=== PATIENT | female | born 1955 | race Caucasian/White ===

== ENCOUNTER 2023-07-02 08:00 | Inpatient (IN) | payer OTHER, SELFPAY ==
[2023-06-30 07:34] VITALS: BMI 21.4
[2023-06-30 08:55] LABS: Hematocrit 37.1 % (37.0-47.0); Hemoglobin 12.7 g/dL (12.0-16.0); Mean Corp Hgb Conc. 34.2 g/dL (33.0-37.0); Mean Corpuscular Hgb 29.9 pg (27.0-31.0); Mean Corpuscular Volume 87.3 fL (81.0-99.0); Mean Platelet Volume 9.8 fL (7.4-10.4); Platelet Count 256 10^3/uL (130-400); Red Blood Cell Count 4.25 10^6/uL (4.20-5.40); Red Cell Dist. Width 12.4 % (11.5-14.5); White Blood Cell Count 4.9 10^3/uL (4.8-10.8)
[2023-06-30 14:52] VITALS: BMI 21.4
[2023-07-02] VITALS (13 sets, daily range): BP systolic 99–121; BP diastolic 64–74; BMI 21.4
[2023-07-02] MEDS: CELEBREX 200 MG PO (08:35)
[2023-07-02] MEDS: TYLENOL 1000 MG PO (08:35)
[2023-07-02] MEDS: NORMOSOL-R 1000 IV (08:59)
[2023-07-02] MEDS: SUBLIMAZE 50 MCG IV (11:47)
[2023-07-02] MEDS: TYLENOL 650 MG PO (12:57)
[2023-07-02] MEDS: ANCEF 5 IV (13:53)
== END 2023-07-02 14:05 | disposition home or self-care (01) | DRG 499 ==
LOC: AMOS 08:00
PROVIDERS: ADMITTING PHYSICIAN Orthopaedic Surgery; FAMILY PHYSICIAN Internal Medicine
PROC: 0QW604Z Revision of Internal Fixation Device in Right Upper Femur, Open Approach (ICD-10-PCS; 2023-07-02)
DX: T84.84XA Pain due to internal orthopedic prosthetic devices, implants and grafts, initial encounter (principal); Y83.1 Surgical operation with implant of artificial internal device as the cause of abnormal reaction of the patient, or of later complication, without mention of misadventure at the time of the procedure
CPT/HCPCS: 36415; 73501; 76000; 85027; 93005; C1713

== ENCOUNTER → 2023-09-01 16:26 | Outpatient (REF) | payer OTHER, SELFPAY | LOC: WDC 16:26 | PROVIDERS: ATTENDING PHYSICIAN Internal Medicine; FAMILY PHYSICIAN Nurse Practitioner | DX: Z12.31 Encounter for screening mammogram for malignant neoplasm of breast (principal) | CPT/HCPCS: 77063; 77067 ==

== ENCOUNTER 2023-10-06 08:43 | Outpatient (RCR) | payer OTHER, SELFPAY | END 2023-10-06 23:59 | disposition home or self-care (01) | LOC: RPT 08:43 | PROVIDERS: ATTENDING PHYSICIAN Physician Assistant Surgical; FAMILY PHYSICIAN Internal Medicine | DX: S72.141D Displaced intertrochanteric fracture of right femur, subsequent encounter for closed fracture with routine healing (principal); T84.84XD Pain due to internal orthopedic prosthetic devices, implants and grafts, subsequent encounter; Z73.6 Limitation of activities due to disability | CPT/HCPCS: 97110; 97112; 97140; 97163 ==

== ENCOUNTER 2023-10-15 07:06 | Outpatient (RCR) | payer OTHER, SELFPAY | END 2023-10-31 07:11 | disposition home or self-care (01) | LOC: RPT 07:06 | PROVIDERS: ATTENDING PHYSICIAN Physician Assistant Surgical; FAMILY PHYSICIAN Internal Medicine | DX: S72.141D Displaced intertrochanteric fracture of right femur, subsequent encounter for closed fracture with routine healing (principal); T84.84XD Pain due to internal orthopedic prosthetic devices, implants and grafts, subsequent encounter; Z73.6 Limitation of activities due to disability | CPT/HCPCS: 97110; 97112 ==

== ENCOUNTER → 2024-09-01 16:37 | Outpatient (REF) | payer OTHER, SELFPAY | LOC: WDC 16:37 | PROVIDERS: ATTENDING PHYSICIAN Internal Medicine | DX: Z12.31 Encounter for screening mammogram for malignant neoplasm of breast (principal) | CPT/HCPCS: 77063; 77067 ==

== ENCOUNTER 2024-10-04 06:29 | Day surgery (SDC) | payer OTHER, SELFPAY | END 2024-10-04 09:29 | disposition home or self-care (01) | LOC: GI 06:29 | PROVIDERS: ATTENDING PHYSICIAN Internal Medicine Gastroenterology; FAMILY PHYSICIAN Internal Medicine | DX: Z12.11 Encounter for screening for malignant neoplasm of colon (principal); K64.8 Other hemorrhoids; Z86.0100 Personal history of colon polyps, unspecified | CPT/HCPCS: G0105 ==